=== PATIENT | female | born 1930 | race Caucasian/White ===

== ENCOUNTER 2021-02-06 12:23 | Emergency (ER) | payer OTHER ==
[2021-02-06 12:29] VITALS: BP 142/68; PULSE 72; TEMP 98; BMI 27.1
[2021-02-06 14:05] LABS: HEMATOCRIT 34.1 % (32.4-45.2); HEMOGLOBIN 11.5 GM/dl (10.7-15.3); MCH 29.8 pg (25.7-33.7); MCHC 33.7 g/dl (32.0-36.0); MEAN CELL VOLUME 88.4 fl (80-96); MEAN PLT VOLUME 8.8 fl (7.5-11.1); PLATELET COUNT 242 10^3/uL (134-434); RBC 3.86 M/mm3 (3.60-5.2); RDW 13.4 % (11.6-15.6)
[2021-02-06 14:45] LABS: ALBUMIN 3.6 g/dl (3.4-5.0); BILIRUBIN,TOTAL 1.2 mg/dl (0.2-1); CALCIUM 8.6 mg/dl (8.5-10); CREATININE 0.9 mg/dl (0.55-1.3); MAGNESIUM 1.9 mg/dL (1.8-2.4); PHOSPHOROUS 3.6 mg/dl (2.5-4.9); TOT PROT 6.4 g/dl (6.4-8.2)
[2021-02-06] MEDS ORDERED: SODIUM CHLORIDE 0.9% 500 ML INFUS.BAG IV ONE (14:55)
== END 2021-02-06 17:20 | disposition home or self-care (01) ==
LOC: FER 12:23
DX: K59.00 Constipation, unspecified (principal); K56.41 Fecal impaction
CPT/HCPCS: 36415; 71045-TC-FY; 74177-TC; 80053; 83605; 83735; 84100; 85025; 99284-25; Q9967